=== PATIENT | female | born 1960 | race Two or more races ===

== ENCOUNTER 2021-12-02 09:38 | Emergency (ER) | payer OTHER ==
[~2021-12-02] VITALS: Ht 162.6 cm; Wt 68.0 kg
[2021-12-02] MEDS ORDERED: TRAZODONE HCL50 MG PO (10:14)
[2021-12-02] MEDS ORDERED: GABAPENTIN100 MG PO (10:15)
[2021-12-02] MEDS ORDERED: NAPROXEN500 MG PO (10:15)
[2021-12-02] MEDS ORDERED: ROSUVASTATIN CA10 MG PO (10:16)
[2021-12-02] MEDS ORDERED: CYCLOBENZAPRINE10 MG PO (10:16)
[2021-12-02] MEDS ORDERED: [UNRECOGNIZED DRUG - OTHER] PO (10:17)
[2021-12-02] MEDS ORDERED: NORVASC5 M1 PO (10:17)
[2021-12-02 11:33] LABS: HEMATOCRIT 46.5 % (37.0-47.0); HEMOGLOBIN 15.2 g/dl (12.0-16.0); IMMATURE GRANULOCYTES 0.1 % (0.0-5.0); MEAN CELL VOLUME 97.5 fL CALC (80.0-100.0); MEAN CORPUSCULAR HGB 31.9 pG CALC (26.0-32.0); MEAN CORPUSCULAR HGB CONC 32.7 g/dL CAL (32.0-36.0); NEUT# 7.4 thou/uL (2.00-7.15); RED BLOOD COUNT 4.77 mill/uL (4.20-5.60); RED CELL DISTRI WIDTH 11.4 % (11.5-15.5)
[2021-12-02 11:50] LABS: ALBUMIN 4.5 g/dL (3.2-5.0); ALKALINE PHOSPHATASE 81 u/l (38-126); ANION GAP 12 (6-22 (CALC)); BUN 15 mg/dL (8-23); BUN/CREATININE RATIO 24 (12-20 (CALC)); CARBON DIOXIDE 26 mmol/l (22-30); CHLORIDE 108 mmol/l (95-108); CREATININE 0.6 mg/dL (0.5-1.0); GFR > 60 ML/MIN (>=60 (CALC)); GFR FOR AFR.AMER. > 60 ML/MIN (>=60 (CALC)); POTASSIUM 3.7 mmol/l (3.5-5.1); SGOT/AST 37 u/l (9-36); SODIUM 142 mmol/l (137-146)
[2021-12-02] MEDS ORDERED: VOLTAREN1%GEL TOP (12:38)
[2021-12-02] MEDS ORDERED: TRAMADOL HYDROC50 M1 PO (12:38)
[2021-12-02 12:48] VITALS: BP 109/78
== END 2021-12-02 13:00 | disposition home or self-care (01) | DRG 552 ==
LOC: ED 09:38
PROVIDERS: Family Medicine
DX: M54.6 Pain in thoracic spine (principal); R07.89 Other chest pain; E78.5 Hyperlipidemia, unspecified; G62.9 Polyneuropathy, unspecified

== ENCOUNTER 2021-12-04 11:11 | Emergency (ER) | payer OTHER ==
[~2021-12-04] VITALS: Ht 162.6 cm; Wt 70.0 kg
[~2021-12-04 11:11] MED LIST: CYCLOBENZAPRINE10 MG PO; GABAPENTIN100 MG PO; NAPROXEN500 MG PO; NORVASC5 M1 PO; ROSUVASTATIN CA10 MG PO; TRAMADOL HYDROC50 M1 PO; TRAZODONE HCL50 MG PO; VOLTAREN1%GEL TOP; [UNRECOGNIZED DRUG - OTHER] PO
[2021-12-04 13:01] VITALS: BP 166/87
== END 2021-12-04 13:08 | disposition home or self-care (01) | DRG 552 ==
LOC: ED 11:11
DX: M54.6 Pain in thoracic spine (principal); G62.9 Polyneuropathy, unspecified